=== PATIENT | female | born 1970 | race Caucasian/White ===

== ENCOUNTER 2024-02-10 10:03 | Emergency (ER) | payer OTHER, SELFPAY ==
[2024-02-10 10:05] VITALS: BP 169/102
[2024-02-10 11:00] VITALS: BMI 26.1
--- NOTE | 2024-02-10 11:03 | ED.GENMED ---
History of Present Illness
General
Chief Complaint: Allergic Reaction
Source: patient
Exam Limitations: none
Time Seen by Provider: 02/10/24 10:36
Travel History
Have you had any contact with someone who has COVID-19?: No
Do you have any symptoms of coronavirus? Fever > 100 degrees, chills, cough, shortness of breath, sore throat, loss of taste or smell, muscle aches, or headache?: No
History of Present Illness
History of Present Illness:
See MDM
Past History
Past History
ED Past Medical History: Other (Fibromyalgia )
ED Past Surgical History: None
Patient has exhibited threatening behavior?: No
PSI?: No
Social History
Tobacco: Non-smoker
Alcohol: None
Phy Exam
Physical Exam
Physical Exam:
See MDM
Course
Orders/Labs/Results
Orders:
Orders
02/10/24 10:45
Dexamethasone Sod Phosphate [Decadron] 10 mg IV NOW STA
Famotidine [Pepcid] 20 mg IV NOW STA
HydrOXYZINE [Atarax] 25 mg PO NOW STA
Ketorolac [Toradol] 30 mg IV NOW STA
02/10/24 11:09
Complete Blood Count/With Diff Urgent
Comprehensive Metabolic Panel Urgent
Abnormal Lab Results
02/10/24
11:09
WBC 11.5 H 10^3/uL
(4.8-10.8)
Absolute Neuts (auto) 10.4 H 10^3/uL
(1.4-6.5)
Absolute Lymphs (auto) 0.7 L 10^3/uL
(1.2-3.4)
Neutrophils % 90.3 H %
(42.2-75.2)
Lymphocytes % 5.6 L %
(20.5-51.1)
Glucose 121 H mg/dl
(70-99)
02/10/24 11:09
02/10/24 11:09
Vital Signs
Initial and Last Documented VS:
Initial Vital Signs
Temp Pulse Resp BP Pulse Ox
97.8 F 102 16 169/102 100
02/10/24 10:05 02/10/24 10:05 02/10/24 10:05 02/10/24 10:05 02/10/24 10:05
Last Documented Vital Signs
Temp Pulse Resp BP Pulse Ox
97.8 F 102 16 139/88 99
02/10/24 10:05 02/10/24 10:05 02/10/24 10:05 02/10/24 11:22 02/10/24 11:32
MDM/Problems Addressed
Differential Diagnosis Includes:
HPI and MDM Narrative:
53-year-old female presenting with concern for allergic reaction. She has been on the sulfadiazine for the past 5 weeks to treat his fibromyalgia. Patient noted a rash yesterday. She stopped the medicine and start taking steroids per her
cable cutter and swager. Patient was worried because the rash is getting worse
Patient denies any sores in her mouth or pain when she urinates. On exam, there is no evidence to suggest Malik-George syndrome. There are small welts that are pruritic. Will treat as allergic reaction with Decadron, Pepcid and hydroxyzine.
Patient planes of mild headache. Will give Toradol
Physical exam
General: Well appearing and non-toxic
HEENT: protecting airway
Neck: appears supple
CV: No evidence of cyanosis
Resp: No accessory muscle use
Abd: Non-distended
Extremities: No deformities
Neuro: alert
Psych: Normal affect
Skin: Urticaria to trunk, back and legs
Problems Addressed including Acute and Chronic Conditions affecting care:
1. Allergic reaction
Acuity: acute
Prognosis: stable
Details: Patient stopped her sulfasalazine. Will treat with steroids and Pepcid
Updates
Blood work without clinical significance. She has rheumatology follow-up tomorrow. Discussed return precautions.
Differential Diagnosis (but not limited to): Adverse drug reaction, allergic reaction
Testing considered: CT head but she is well-appearing
Drug therapy (if applicable): OTC meds, please see d/c instruction regarding Rx drugs
Amount and/or Complexity of Data Reviewed
Clinical info obtained from: Patient
External data reviewed: N/A
Labs I independently reviewed (but not limited to): Mild leukocytosis and hyperglycemia, likely related to recent steroid use
Radiology: N/A
Pulse Ox: not hypoxic
EKG independently reviewed: N/A
Multimedia Programmer: N/A
Critical Care: N/A
Risk of Complication:
Social Determinants of health: Good social support
Discussed with other providers: N/A
Escalation of Care includes Admit/Obs: After being observed in the Emergency Department, pt stable for discharge.
Occasional wrong word or 'sound a like' substitutions may have occurred due to the inherent limitations of voice recognition software. Read the chart carefully and recognize, using context, where substitutions have occurred.
*Critical Care Note
Total Time (30-74mins, 75-104mins- exclusive of procedures): Not Applicable
ED Attending Note
-
Portions of this chart may have been created with voice recognition software.� Occasional wrong word or��sound alike� substitutions may have occurred due to the inherent limitations of voice recognition software.
Discharge Plan
Departure
Patient Disposition: Home (Routine Discharge)
Date of Disposition: 02/10/24
Time of Disposition: 12:16
Patient with high blood pressure during this ER visit?: Yes
Discharge Problem:
Allergic reaction
Prescriptions:
New
prednisone 10 mg tablet
See Rx Instructions .ROUTE .COMPLEX Qty: 45 0RF
Rx Instructions:
5 tabs day 1-3, 4 tabs day 4-6, 3 tabs day 7-9, 2 tabs day 10-12, 1 tab day 13-15
hydroxyzine HCl 25 mg tablet
25 mg PO BID PRN (Reason: itching) Qty: 20 0RF
Referrals:
Summer Naranjo CRNP [Family Provider] -
Activity Restrictions/Additional Instructions:
Please return for any worsening symptoms.
You may return at any time if you have further concerns.
Please keep your rheumatology appointment tomorrow.
Thank you for choosing [facility].
Interventions
Interventions:
*Risk Screen - Suicide Last Done: 02/10/24 10:05
*General Assessment Last Done: 02/10/24 10:05
*Neglect/Abuse Screening Last Done: 02/10/24 10:05
ED- Pulmonary Assessment Last Done: 02/10/24 11:32
ED-Skin Assessment Last Done: 02/10/24 11:32
Discharge Date and Time
Print Language: CUBAN
[2024-02-10] MEDS: ATARAX 25 MG PO (11:14)
[2024-02-10] MEDS: DECADRON 10 MG IV (11:14)
[2024-02-10] MEDS: PEPCID 20 MG IV (11:16)
[2024-02-10] MEDS: TORADOL 30 MG IV (11:18)
[2024-02-10 11:20] LABS: % Basophils 0.2 % (0-2); % Eosinophils 0.1 % (0-6); % Immature Granulocytes 0.3 % (0-0.5); % Lymphocytes 5.6 % (20.5-51.1); % Monocytes 3.5 % (1.7-9.3); % Neutrophils 90.3 % (42.2-75.2); Absolute Lymphocytes 0.7 10^3/uL (1.2-3.4); Absolute Monocytes 0.4 10^3/uL (0.1-0.6); Absolute Neutrophils 10.4 10^3/uL (1.4-6.5); Hematocrit 39.8 % (37.0-47.0); Hemoglobin 13.6 g/dL (12.0-16.0); Mean Corp Hgb Conc. 34.2 g/dL (33.0-37.0); Mean Corpuscular Hgb 30.6 pg (27.0-31.0); Mean Corpuscular Volume 89.6 fL (81.0-99.0); Mean Platelet Volume 8.9 fL (7.4-10.4); Nucleated Red Blood Cells % 0 %; Platelet Count 285 10^3/uL (130-400); Red Blood Cell Count 4.44 10^6/uL (4.20-5.40); Red Cell Dist. Width 12.9 % (11.5-14.5); White Blood Cell Count 11.5 10^3/uL (4.8-10.8)
[2024-02-10 11:22] VITALS: BP 139/88
[2024-02-10 11:41] LABS: ALT (SGPT) 16 U/L (0-35); AST (SGOT) 23 U/L (14-36); Albumin 4.6 g/dl (3.5-5.0); Alkaline Phosphatase 111 U/L (38-126); Blood Urea Nitrogen 17 mg/dl (7-17); Calcium 10.2 mg/dl (8.4-10.2); Carbon Dioxide 25 mmol/L (22-30); Chloride 106 mmol/L (98-107); Estimated Creatinine Clearance 111 ml/min; Glucose 121 mg/dl (70-99); Sodium 139 mmol/L (135-145); Total Bilirubin 0.6 mg/dl (0.2-1.3); Total Protein 7.4 g/dl (6.3-8.2); eGFR > 60.00
[2024-02-10 12:00] VITALS: BP 133/82
== END 2024-02-10 12:49 | disposition home or self-care (01) ==
LOC: EMR 10:03
PROVIDERS: EMERGENCY PHYSICIAN Student in an Organized Health Care Education/Training Program; FAMILY PHYSICIAN Nurse Practitioner Family
DX: T78.40XA Allergy, unspecified, initial encounter (principal); X58.XXXA Exposure to other specified factors, initial encounter; R03.0 Elevated blood-pressure reading, without diagnosis of hypertension; M79.7 Fibromyalgia
CPT/HCPCS: 99284; 96374; 96375 ×2; 80053; 85025